=== PATIENT | female | born 1990 | race Caucasian/White ===

== ENCOUNTER 2025-07-31 20:36 | Emergency (ER) | payer OTHER, SELFPAY ==
--- OUTSIDE RECORDS SUMMARY | 2025-06-11 09:00 | XMS_ITS | Encounter Summary ---
Author Organization [facility] Address [address] [place] [address] Care Team Providers Care Band And Cuff Cutter Name Role Phone Lisbeth Sanchez APRN, CNP Primary Care Provid er Reason for Referral * Procedure/Equipment (Routine) - Incomplete Specialty Diagnoses / Procedures Referred By Contac t Referred To Contact Diagnoses Cervicalgia Procedures XR Cervical Spine 2 Views Bessy Delacruz PA-C [address] [place] [address] Phone: tel: fax: Referral ID Status Reason Start Date Expiration Date V isits Requested Visits Authorized [id number] Incomplete 06/11/2025 09/10/2026 1 1 * Consult/Transfer Care (Routine) - New Request Specialty Diagnoses / Procedures Referred By Benigno metzger Referred To Contact Diagnoses Atopic dermatitis, unspecified type Bessy Delacruz PA-C [address] [place] [address] Phone: tel: fax: Referral ID Status Reason Start Date Expiration Date V isits Requested Visits Authorized [id number] New Request 06/11/2025 09/10/2026 1 1 Scheduling Instructions Your clinician has recommended an appointment with Stephanie Porter. You can quickly schedule your appointment by signing in to your online account at [email or web address] or through the text message you may have received. You can also make an appointment by calling [phone]. We also suggest you call your health insurance provider about your benefits and coverage for this appointment. Question Answer Appointment Urgency? Non-Urgent Reason for Visit All other derm conditions - possible eczema, pruritic, dry, red rash feet, hands eye Reason for Visit * Reason Comments Follow-up Foot ongoing right N jose roberto pain Encounter Details Date Type Department Care Team (Late st Contact Info) Description 06/11/2025 10:00 AM CDT Office Visit [facility] [address] [facility] [place], [place] [phone] Bessy Delacruz PA-C [address] [place], [place] [phone] Chronic hypertension (HRC) (Primary Dx); Encounter for long-term current use of medication; Atopic dermatitis, unspecified type; Generalized pruritus; Cervicalgia Social History Tobacco Use Types Packs/Day Years Used Date Smoking Tobacco: Never Smokeless Tobacco: Never Alcohol Use Standard Drinks/Week Comments Yes 0 (1 standard drink = 0.6 oz pur e alcohol) social PHQ-2 Answer Date Recorded PHQ-2 Score 0 06/11/2025 Depression Answer Date Recor ded Last EPDS Total Score 0 10/08/2024 Last EPDS Self Harm Result Not on file 10/08 Comments No Sex and Gender Information Value Date Recorded Sex Assigned at Not on file Legal Sex Female 4:50 AM CDT Gender Identity Not on file Sexual Orientation Not on file 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 file Not on file Not on file documented as of this encounter Last Filed Vital Signs Vital Sign Reading Time Taken Comments Blood Pressure 140/99 06/11/2025 9:48 AM CDT Pulse 90 06/11/2025 9:48 AM CDT Temperature - - Respiratory Rate - - Oxygen Saturation - - Inhaled Oxygen Concentration - - Weight 112.4 kg (247 lb 11.2 oz) 06/11/2025 9:37 AM CDT Height 177 cm (5' 9.69) 06/11/2025 9:37 AM CDT Body Mass Index 35.86 06/11/2025 9:37 AM CDT documented in this encounter Patient Instructions * Patient Instructions* Bessy Delacruz PA-C - 06/11/2025 10:00 AM CDT Your clinician has recommended an appointment with [facility]. You can quickly schedule your appointment by signing in to your online account at [email or web address] or through the text message you may have received. You can also make an appointment by calling [phone]. We also suggest you call your health insurance provider about your benefits and coverage for this appointment. documented in this encounter Progress Notes * Bessy Delacruz PA-C - 06/11/2025 10:00 AM CDT Images from the original note were not included. Clinic Progress Note DATE OF VISIT: 06/11/2025 SUBJECTIVE: Chief Complaint Patient presents with Follow-up Foot ongoing right Neck pain History of Present Illness Emily Pittman is a 34 year old female with hypertension and PVCs who presents with concerns about blood pressure management and neck pain. Hypertension - Elevated blood pressure during stress tests, with a peak of 210/120 mmHg - Home blood pressure readings typically 120-130/90 mmHg - Current antihypertensive regimen includes metoprolol 100 mg, hydrochlorothiazide 25 mg, and spironolactone 100 mg - Family history of hypertension in both parents, both on medication - Anxiety during stress test - Previously on losartan, stopped due to BP control - Hx of persistent mild erythrocytosis - No snoring or gasping for air during sleep - Restlessness at night - No reported snoring or gasping by - Generally feels well-rested Premature ventricular contractions (pvcs) - History of bothersome PVCs, currently less severe - Metoprolol taken primarily for PVCs, also aids in blood pressure control Cervicalgia - Neck pain for a couple of months, described as 'pinchy sharp' on the light side - Pain radiates to the back of the neck and causes headaches - Pain is positional, worsens with certain movements, especially tilting head back - No arm weakness or tingling - Pain more pronounced in the morning and worsens throughout the day, especially with prolonged computer use Pruritic foot rash - Foot rash present for 1-2 years, characterized by itchiness and small bumps - Rash primarily on the back and bottom of the foot - Rash migrates to different areas and recently associated with itching on the hands - No improvement with ketoconazole cream or desonide low dose cream (prescribed for eye eczema) w/ continuous use - Family history of psoriatic eczema in father - Generalized itching on chest and neck without associated rash - Attributed to dry weather - 10/2024 TSH WNL She reports resolution of SOB, feeling of deconditioning and chest wall pain at bra line following her wedding, sx have not presented again. Patient Active Problem List Diagnosis Date Noted Ventricular premature depolarization 10/08/2024 PMS (premenstrual syndrome) 04/07/2022 Chronic hypertension (HRC) 05/31/2017 Past Medical History[1] Past Surgical History[2] Family History[3] Social history reviewed and updated in [facility]. Current Medications Table[4] Allergies Allergen Reactions Benzoyl Peroxide Hives and Edema,generalized Swelling, rash, hives. Review of Systems The remainder of complete review of systems is negative except as noted above. OBJECTIVE: BP (!) 140/99 (BP Location: Left Arm, BP Cuff Size: Regular) Pulse 90 Ht 5' 9.69 (1.77 m) Wt247 lb 11.2 oz (112.4 kg) LMP 05/21/2025 (Approximate) BMI 35.86 kg/m?? General: 34 y.o. female in no distress. Neck: No visible mass or goiter. Pain w/ palpation along L trapezius and notable tightness. L-sidedpain reported with leaning head back to L, all other movements w/o sx. Chest: Normal respiratory effort. Lungs are clear with good breath sounds bilaterally. Heart: Regular rate and rhythm. No murmur or gallop. Extremities: No edema. Skin: See skin findings as below. Assessment: Emily was seen today for follow-up. Diagnoses and all orders for this visit: Chronic hypertension (HRC) Chronic. Uncontrolled. Hypertension with episodes of elevated blood pressure, particularly during stress testing, [id number]/120 mmHg. Home readings average 120-130/90 mmHg. Premature ventricular contractions better controlled. No ischemia or stress on the heart during stress test. Ejection fraction is 51%. Family history of hypertension. Anxiety may contribute to elevated readings in clinical settings. - Discontinue hydrochlorothiazide. - Initiate losartan 50 mg with hydrochlorothiazide 12.5 mg combination therapy to minimize pill burden per pt preference. - Monitor blood pressure at home, especially in non-stressful settings. - Hold off on cardiology referral for now, but consider if blood pressure remains elevated or symptoms persist. - Check BMP in 2-4 weeks after starting losartan. - Submit an e-visit in 2-4 weeks with blood pressure readings. - Consider sleep study if symptoms suggestive of sleep apnea develop. - losartan-hydrochlorothiazide (HYZAAR) 50-12.5 MG tablet; Take 1 Tablet by mouth daily. - E-Visit (Clinician Initiated); Future - BMP; Future Encounter for long-term current use of medication - BMP; Future Atopic dermatitis, unspecified type Chronic. Uncontrolled. Chronic eczematous dermatitis on foot and hand with pruritus for 1-2 years. Previous treatments with ketoconazole and desonide cream were ineffective. Family history of eczema. Symptoms include itching and small bumps, with occasional spread to hands. Differential diagnosis includes eczema versus fungal infection, but fungal treatment was ineffective. - Prescribe higher potency steroid ointment for affected areas, to be used twice daily for 2 weeks. - Refer to dermatology for further evaluation and potential biopsy if symptoms persist. - Consider scheduling a dermatology appointment due to potential wait times. - Dermatology Consult-Adult/Peds - betamethasone dipropionate (DIPROSONE) 0.05 % ointment; Apple to affected area twice daily for upto 2 weeks. Generalized pruritus Acute. Controlled. - Liver Panel (Hepatic Function Panel); Future Cervicalgia Chronic. Uncontrolled. Chronic cervicalgia for several months, with sharp, pinching pain on the right side of the neck, sometimes radiating to the back of the neck and head. Pain is positional and worsens with certain movements. No associated arm weakness or tingling. Likely muscular in origin, with tightness noted on examination. - Order cervical spine x-ray to rule out bony abnormalities, x-ray w/ mild degenerative changes - Prescribe Flexeril 5 mg, with option to increase to 10 mg if tolerated, to be taken up to three times daily as needed. - Advise on neck stretches and self-directed physical therapy exercises. - Monitor for any progression of symptoms, such as shooting pain or weakness, which may warrant further imaging like MRI. - cyclobenzaprine (FLEXERIL) 5 MG tablet; Take 1-2 Tablets (5-10 mg) by mouth three times a day as needed for Muscle Spasms. - XR Cervical Spine 2 Views; Future Follow up if not improving or any concerns. Bessy Delacruz PA-C [1] Past Medical History: Diagnosis Date BP (high blood pressure) (HRC) Female infertility of unspecified origin Hypertension (HRC) Obesity (ACG) Thyroid disorder (HRC) Varicella [2] Past Surgical History: Procedure Laterality Date CHOLECYSTECTOMY HX APPENDECTOMY WISDOM TEETH EXTRACTION [3] Family History Problem Relation Name Age of Onset Hypertension Mother Mom High Cholesterol Mother Mom Blindness Father Dad legally blind in one eye Hypertension Father Dad High Cholesterol Father Dad Heart Disease Maternal Grandmother Marilin High Cholesterol Maternal Grandmother Marilin Hypertension Maternal Grandmother Marilin Heart Disease Maternal Grandfather Ray Diabetes Maternal Grandfather Ray Hypertension Maternal Grandfather Ray Heart Disease Paternal Grandfather Grandpa Don High Cholesterol Paternal Grandfather Grandpa Don Cancer, Breast Negative Family History Cancer, Ovary Negative Family History [4] Current Outpatient Medications Medication Sig Dispense Refill betamethasone dipropionate (DIPROSONE) 0.05 % ointment Apple to affected area twice daily for up to2 weeks. 15 g 2 cyclobenzaprine (FLEXERIL) 5 MG tablet Take 1-2 Tablets (5-10 mg) by mouth three times a day as needed for Muscle Spasms. 30 Tablet 0 desogestrel-ethinyl estradiol (APRI) 0.15-30 MG-MCG tablet Take 1 active tablet daily continuous for 3 months then stop taking active tablets for 7 days 112 Tablet 3 glycopyrrolate (ROBINUL) 1 MG tablet Take 1 tab by mouth once daily as needed. Indications: Excessive Sweating Disorder 30 Tablet 0 losartan-hydrochlorothiazide (HYZAAR) 50-12.5 MG tablet Take 1 Tablet by mouth daily. 30 Tablet 2 metoprolol succinate (TOPROL XL) 100 MG 24 hour release tablet Take 1 Tablet (100 mg) by mouth daily. 90 Tablet 3 spironolactone (ALDACTONE) 100 MG tablet Take 1 Tablet (100 mg) by mouth daily. 90 Tablet 3 SUMAtriptan (IMITREX) 50 MG tablet Take 1 Tablet (50 mg) by mouth as needed for Migraine. May repeat one tablet after 2 hours if needed. Maximum 4 tabs/24 hours and 9 days/month 9 Tablet 3 valACYclovir (VALTREX) 1 g tablet Take 1 tablet twice daily for 1 day at onset of symptoms. 30 Tablet 3 No current facility-administered medications for this visit. D TUBER MACHINE OPERATOR documented in this encounter Plan of Treatment Upcoming Encounters Date Type Department Care Team (Late st Contact Info) Description 08/23/2025 8:30 AM TREAD TUBER MACHINE OPERATOR Appointment [place] [address] [place] [address] Selina Rosales MD [address] [place] [address] 10/27/2025 1:00 PM TREAD TUBER MACHINE OPERATOR Appointment [facility] [address] [place] [address] 03/04/2026 11:10 AM CDT [facility] [place] [address] [place] [phone] [facility] [id number] [place] [address] Scheduled Referrals Name Type Priority Associated Diagnoses Orde r Schedule Dermatology Consult-Adult/Peds Referral Routine Atopic dermatitis, unspecified type Ordered: 06/11/2025 documented as of this encounter Results * Liver Panel (Hepatic Function Panel) (07/03/2025 8:06 AM CDT) Alkaline Phosphatase 45 40 - 150 U/L 07/03/2025 9:17 AM CDT [facility] Bilirubin, Total 0.4 0.2 - 1.2 mg/dL 07/03/2025 9:17 AM [facility] Bilirubin, Direct 0.1 0.0 - 0.5 mg/dL 07/03/2025 9:17 AM [facility] AST (SGOT) 18 16 - 46 U/L 07/03/2025 9:17 AM [facility] ALT (SGPT) 12 0 - 55 U/L 07/03/2025 9:17 AM [facility] Protein, Total 7.5 6.4 - 8.3 g/dL 07/03/2025 9:17 AM [facility] Albumin 4.0 3.5 - 5.0 g/dL 07/03/2025 9:17 AM [facility] Blood Venipuncture / Unknown 07/03/2025 8:06 AM CDT 07/03/2025 8:42 AM CDT us Bessy Delacruz PA-C LAB_1 Final Result [facility] CLIA: [id number] [address] [place] [address] * BMP (07/03/2025 8:06 AM CDT) Sodium 136 136 - 145 mmol/L 07/03/2025 9:17 AM [facility] Potassium 3.9 3.5 - 5.1 mmol/L 07/03/2025 9:17 AM [facility] Chloride 102 98 - 109 mmol/L 07/03/2025 9:17 AM [facility] CO2 23 20 - 29 mmol/L 07/03/2025 9:17 AM [facility] Anion Gap 11 6 - 16 mmol/L 07/03/2025 9:17 AM [facility] Calcium 10.0 8.4 - 10.4 mg/dL 07/03/2025 9:17 AM [facility] BUN 16 7 - 26 mg/dL 07/03/2025 9:17 AM [facility] Creatinine 0.89 0.55 - 1.02 mg/dL 07/03/2025 9:17 AM [facility] Glucose 95 70 - 100 mg/dL 07/03/2025 9:17 AM CDT [facility] Comment:The given reference range is for the fasting state. Non-fasting reference range for glucose is 70 - 180 mg/dL. GFR, Estimated >60 >60 mL/min/1.7 3m2 07/03/2025 9:17 AM CDT [facility] Hours Fasting 0.1 8 - 12 Hours 07/03/2025 9:17 AM CDT [facility] Comment:Lab unable to obtain patient's fasting status at time of specimen collection. Blood Venipuncture / Unknown 07/03/2025 8:06 AM CDT 07/03/2025 8:42 AM CDT us Bessy Delacruz PA-C LAB_1 Final Result [facility] CLIA: [id number] [address] [place] [address] * XR Cervical Spine 2 Views (06/11/2025 10:49 AM CDT) Anatomical Region Laterality Modality Spine, C-Spine, Neck Digital Rad iography Narrative 06/11/2025 11:01 AM CDT EXAM: XR CERVICAL SPINE 2 VIEWS INDICATION: L-sided neck pain, chronic, worsening, feels like pinching COMPARISON: None. FINDINGS: Two images obtained. Vertebral body heights appear well preserved. Mild degenerative disc and endplate changes C4-5 and C5-6. AP alignment is well preserved. Mild multilevel facet arthropathy. Prevertebral soft tissues are unremarkable. Signed by: Randall Mello 06/11/2025 11:01 AM Procedure Note Randall Mello, DO - 06/11/2025 EXAM: XR CERVICAL SPINE 2 VIEWS INDICATION: L-sided neck pain, chronic, worsening, feels like pinching COMPARISON: None. FINDINGS: Two images obtained. Vertebral body heights appear well preserved. Milddegenerative disc and endplate changes C4-5 and C5-6. AP alignment iswell preserved. Mild multilevel facet arthropathy. Prevertebral softtissues are unremarkable. Signed by: Randall Mello 06/11/2025 11:01 AM Bessy Delacruz PA-C RAD GD Final Result documented in this encounter Visit Diagnoses Diagnosis Chronic hypertension (HRC)- Primary Encounter for long-term current use of medication Atopic dermatitis, unspecified type Generalized pruritus Unspecified pruritic disorder Cervicalgia Neck pain on left side Cervicalgia documented in this encounter Care Teams Band And Cuff Cutter Relationship Specialty Start Date End Date Lisbeth Sanchez, TRACK ANNOUNCER, MUSIC EDUCATION ADJUNCT PROFESSOR [address] [place] [address] PCP - General Nurse Practitioner 01/23/23 documented as of this encounter
--- OUTSIDE RECORDS SUMMARY | 2025-06-26 23:00 | XMS_ITS | Encounter Summary ---
Author Organization [facility] Address [address] [place] [address] Care Team Providers Care Aesthetics Instructor Name Role Phone Lisbeth Sanchez Stephanie BROWN, FRONT OF HOUSE MANAGER Primary Care Provid er Reason for Visit * Reason Comments HYPERTENSION Entered automaticall y based on patient selection in [employer]. Encounter Details Date Type Department Care Team (Late st Contact Info) Description 06/27/2025 E-Visit [facility] Medicine [address] [place], [place] [phone] Besys Delacruz PA-C [address] [place], [place] [phone] Chief Comp: HYPERTENSION Social History Tobacco Use Types Packs/Day Years [...] Sign Reading Time Taken Comments Blood Pressure 119/88 07/10/2025 9:00 AM INTERNSHIP COORDINATOR Pulse - - Temperature - - Respiratory Rate - - Oxygen Saturation - - Inhaled Oxygen Concentration - - Weight - - Height - - Body Mass Index - - documented in this encounter Nursing Notes * Joanna John F - 07/10/2025 1:21 PM CST Documented BP, routing to provider to advise RNSHIP COORDINATOR documented in this encounter Plan of Treatment Upcoming Encounters Date Type Department Care Team (Late st Contact Info) Description 08/23/2025 8:30 AM INTERNSHIP COORDINATOR Appointment [place] [address] [place] [address] Selina Rosales MD [address] [place] [address] 10/27/2025 1:00 PM INTERNSHIP COORDINATOR Appointment [facility] [address] [place] [address] 03/04/2026 11:10 AM CDT Appointment [facility] [place] [address] [place] [phone] [facility] [address] [place], [place] [phone] documented as of this encounter Visit Diagnoses Not on filedocumented in this encounter Care Teams Aesthetics Instructor Relationship Specialty Start Date End Date Lisbeth Sanchez, ROUSTABOUT CREW, FRONT OF HOUSE MANAGER [address] [place] [address] PCP - General Nurse Practitioner 01/23/23 documented as of this encounter
--- OUTSIDE RECORDS SUMMARY | 2025-07-03 07:10 | XMS_ITS | Encounter Summary ---
Author Organization [facility] Address [address] [place] [address] Care Team Providers Care Hoist Worker Name Role Phone Laura Lisbeth Stephanie BROWN CNP Primary Care Provid er Encounter Details Date Type Department Care Team (Late Contact Info) Description 07/03/2025 8:10 AM CDT Lab Visit [facility] [address] [place] [address] Chronic hypertension (HRC); Encounter for long-term current use of medication; Generalized pruritus Social History Tobacco Use Types Packs/Day Years [...] on file documented as of this encounter Plan of Treatment Upcoming Encounters Date Type Department Care Team (Late Contact Info) Description 08/23/2025 8:30 AM INSURANCE CLAIMS ASSISTANT Appointment [place] [address] Dermatology [facility] [place] [address] Selina Rosales MD [address] [place] [address] 10/27/2025 1:00 PM INSURANCE CLAIMS ASSISTANT Appointment [facility] [address] [place] [address] 03/04/2026 11:10 AM CDT [facility]ment [facility] [place] [address] [place] [address] [facility] [address] [place] [address] documented as of this encounter Procedures Procedure Name Priority Date/Time Associated Diagnosis Comments LIVER PANEL(HEPATIC FUNCTION PANEL) Routine 07/03/2025 8:06 AM CDT Generalized pruritus BASIC METABOLIC PANEL Routine 07/03/2025 8:06 AM CDT Chronic hypertension (HRC) Encounter for long-term current use of medication documented in this encounter Results * Liver Panel (Hepatic Function Panel) (07/03/2025 8:06 AM CDT) Alkaline Phosphatase 45 40 - 150 U/L 07/03/2025 9:17 AM T [facility] Bilirubin, Total 0.4 0.2 - 1.2 mg/dL 07/03/2025 9:17 AM [facility] Bilirubin, Direct 0.1 0.0 - 0.5 mg/dL 07/03/2025 9:17 AM T [facility] AST (SGOT) 18 16 - 46 U/L 07/03/2025 9:17 AM [facility] ALT (SGPT) 12 0 - 55 U/L 07/03/2025 9:17 AM [facility] Protein, Total 7.5 6.4 - 8.3 g/dL 07/03/2025 9:17 AM [facility] Albumin 4.0 3.5 - 5.0 g/dL 07/03/2025 9:17 AM [facility] Blood Venipuncture / Unknown 07/03/2025 8:06 AM CDT 07/03/2025 8:42 AM CDT us Bessy Delacruz PA-C LAB_1 Final Result [facility] CLIA: [id number] [address] [place] [address] * BMP (07/03/2025 8:06 AM CDT) Sodium 136 136 - 145 mmol/L 07/03/2025 9:17 AM [facility] Potassium 3.9 3.5 - 5.1 mmol/L 07/03/2025 9:17 AM [facility] Chloride 102 98 - 109 mmol/L 07/03/2025 9:17 AM [facility] CO2 23 20 - 29 mmol/L 07/03/2025 9:17 AM [facility] Anion Gap 11 6 - 16 mmol/L 07/03/2025 9:17 AM [facility] Calcium 10.0 8.4 - 10.4 mg/dL 07/03/2025 9:17 AM [facility] BUN 16 7 - 26 mg/dL 07/03/2025 9:17 AM [facility] Creatinine 0.89 0.55 - 1.02 mg/dL 07/03/2025 9:17 AM [facility] Glucose 95 70 - 100 mg/dL 07/03/2025 9:17 AM [facility] Comment:The given reference range is for the fasting state. Non-fasting reference range for glucose is 70 - 180 mg/dL. GFR, Estimated >60 >60 mL/min/1.7 3m2 07/03/2025 9:17 AM [facility] Hours Fasting 0.1 8 - 12 Hours 07/03/2025 9:17 AM [facility] Comment:Lab unable to obtain patient's fasting status at time of specimen collection. Blood Venipuncture / Unknown 07/03/2025 8:06 AM CDT 07/03/2025 8:42 AM CDT us Bessy Delacruz PA-C LAB_1 Final Result [facility] CLIA: [id number] [address] [place] [address] documented in this encounter Visit Diagnoses Diagnosis Chronic hypertension (HRC) Encounter for long-term current use of medication Generalized pruritus Unspecified pruritic disorder documented in this encounter Care Teams Hoist Worker Relationship Specialty Start Date End Date Lisbeth Sanchez, KEVIN, YEAST STACKER [address] [place] [address] PCP - General Nurse Practitioner 01/23/23 documented as of this encounter
--- OUTSIDE RECORDS SUMMARY | 2025-07-14 14:00 | XMS_ITS | Encounter Summary ---
Author Organization [facility] Address [address] [place] [address] Care Team Providers Care Mobile Developer Name Role Phone Lisbeth Sanchez APRN, CNP Primary Care Provid er Reason for Referral * Consult/Transfer Care (Routine) - New Request Specialty Diagnoses / Procedures Referred By Benigno metzger Referred To Contact Diagnoses Generalized pruritus of unknown etiology Atopic dermatitis, unspecified type Tinea pedis of both feet Bessy Delacruz PA-C [address] [place] [address] Phone: tel: fax: Referral ID Status Reason Start Date Expiration Date V isits Requested Visits Authorized [id number] New Request 07/14/2025 10/13/2026 1 1 Scheduling Instructions Your clinician has recommended an appointment with Stephanie Porter. You can quickly schedule your appointment by signing in to your online account at [email or web address] or through the text message you may have received. You can also make an appointment by calling [phone]. We also suggest you call your health insurance provider about your benefits and coverage for this appointment. Question Answer Appointment Urgency? Non-Urgent Reason for Visit All other derm conditions - generalized pruritis, pruritic rash of bilateral feet, chronic IC LICENSED PRACTICAL NURSE * (Routine) - New Request Specialty Diagnoses / Procedures Referred By Benigno metzger Referred To Contact Diagnoses Generalized pruritus of unknown etiology Atopic dermatitis, unspecified type Procedures E-Consult to Dermatology - (for non-urgent low complexity quick questions only) Bessy Delacruz PA-C [address] [place] [address] Phone: tel: fax: Referral ID Status Reason Start Date Expiration Date V isits Requested Visits Authorized [id number] New Request 07/14/2025 10/13/2026 1 1 IC LICENSED PRACTICAL NURSE Reason for Visit * Reason Comments QUESTIONS, GENERAL Entered automaticall y based on patient selection in [employer]. Encounter Details Date Type Department Care Team (Late Contact Info) Description 07/14/2025 2:00 PM CLINIC LICENSED PRACTICAL NURSE E-Visit [facility] [address] [facility] [place] [address] Bessy Delacruz PA-C [address] [place], [place] [phone] Dx: Generalized pruritus of unknown etiology (Primary Dx) Social History Tobacco Use Types Packs/Day Years [...] (Late Contact Info) Description 08/23/2025 8:30 AM CLINIC LICENSED PRACTICAL NURSE Appointment [place] [address] Dermatology [address] [place] [address] Selina Rosales MD [address] [place] [address] 10/27/2025 1:00 PM CLINIC LICENSED PRACTICAL NURSE Appointment [facility] [address] [place] [address] 03/04/2026 11:10 AM CDT Appointment [facility] [place] [address] [place] [phone] [facility] [address] [place], [place] [phone] Scheduled Referrals Name Type Priority Associated Diagnoses Orde r Schedule Dermatology Consult-Adult/Peds Referral Routine Generalized pruritus of unknown etiology Atopic dermatitis, unspecified type Tinea pedis of both feet Ordered: 07/14/2025 documented as of this encounter Results * (ABNORMAL) Ferritin (07/29/2025 9:19 AM CLINIC LICENSED PRACTICAL NURSE) Ferritin 380(H) 9 - 204 ng/mL 07/29/2025 2:21 PM CLINIC LICENSED PRACTICAL NURSE [facility] Blood Venipuncture / Unknown 07/29/2025 9:19 AM CLINIC LICENSED PRACTICAL NURSE 07/29/2025 9:19 AM CLINIC LICENSED PRACTICAL NURSE us Bessy Delacruz PA-C LAB_1 Final Result [facility] CLIA: [id number] [address] [place], [place] [address] documented in this encounter Visit Diagnoses Diagnosis Generalized pruritus of unknown etiology- Primary Atopic dermatitis, unspecified type Tinea pedis of both feet documented in this encounter Care Teams Mobile Developer Relationship Specialty Start Date End Date Lisbeth Sanchez, PICTURE BOOKER, PLASTIC WELDER [address] [facility] [address] PCP - General Nurse Practitioner 01/23/23 documented as of this encounter
--- OUTSIDE RECORDS SUMMARY | 2025-07-18 09:00 | XMS_ITS | Encounter Summary ---
Author Organization [employer] Address [address] [place] [address] Care Team Providers Care Field Administrator Name Role Phone Lisbeth Sanchez APRN, CNP Primary Care Provid er Reason for Visit * Reason Comments CONSULT * Consult/Transfer Care (Routine) - New Request Specialty Diagnoses / Procedures Referred By Benigno metzger Referred To Contact Cardiology Diagnoses Symptomatic PVCs LUIS (dyspnea on exertion) Bessy Delacruz PA-C [address] [place] [address] Phone: tel: fax: Referral ID Status Reason Start Date Expiration Date V isits Requested Visits Authorized [id number] New Request 02/19/2025 05/21/2026 1 1 Encounter Details Date Type Department Care Team (Late st Contact Info) Description 07/18/2025 9:00 AM AGRICULTURAL CROP FARM MANAGER Office Visit Cardiology at [place] [address] [facility] [place] [address] Marquis Casillas DO [address] [place] [address] Ventricular premature depolarization (Primary Dx); Chronic hypertension (HRC) Social History Tobacco Use Types Packs/Day Years [...] Sign Reading Time Taken Comments Blood Pressure 118/93 07/18/2025 8:51 AM AGRICULTURAL CROP FARM MANAGER Pulse 103 07/18/2025 8:51 AM AGRICULTURAL CROP FARM MANAGER Temperature - - Respiratory Rate - - Oxygen Saturation - - Inhaled Oxygen Concentration - - Weight 114.5 kg (252 lb 6.4 oz) 07/18/2025 8:40 AM AGRICULTURAL CROP FARM MANAGER Height 175.3 cm (5' 9) 07/18/2025 8:40 AM AGRICULTURAL CROP FARM MANAGER Body Mass Index 37.27 07/18/2025 8:40 AM AGRICULTURAL CROP FARM MANAGER documented in this encounter Progress Notes * Marquis Casillas, DO - 07/18/2025 12:00 AM CST NAME: EMILY THOMAS CSN: [id number] CLINIC NOTE CARDIOLOGY CLINIC CONSULTATION DATE OF SERVICE: 07/18/2025 : 1990 REASON FOR VISIT: PVCs. HISTORY: Emily Thomas is a 35-year-old female with a history of hypertension. She is on 4 drugs for blood pressure including metoprolol, losartan/hydrochlorothiazide, and spironolactone. The patient's blood pressure has been elevated for the last few years. She does have a family history of hypertension with both of her parents being diagnosed with this at an early age. She has noted PVCs, which have been confirmed through a ZIO Patch monitor to link the symptoms. She wore the ZIO patch monitor inFebruary of 2023, showing an overall PVC burden of 2.5%. She did have some episodes of bigeminy andtrigeminy. She is symptomatic with PVCs. Her baseline electrocardiogram has been normal and there has been no QT prolongation. A stress echocardiogram obtained in April of this year showed no evidence for inducible ischemia with normal left ventricular systolic function. The patient's blood pressure was markedly elevated with exercise. She had been off her Toprol for the test. She had been previously on 100 mg of Toprol daily. She only achieved 80% of her maximum predicted heart rate. The patient has had PVCs that tend to be worse at night when she is lying in bed. She feels this kusum sense of skipped beats. She does not exercise regularly, but when she does do activities, these have not limited her. She does report that she passed out in her bathroom a year ago, the underlying reason was not identified. She did have warning symptoms. The patient does not snore per her account. She overall states her sleep is okay and she rarely naps. ALLERGIES: BENZOYL PEROXIDE. MEDICATIONS: 1. Micronor control pills. 2. Toprol-XL 100 mg daily. 3. Spironolactone 100 mg daily. 4. Losartan/hydrochlorothiazide 50/12.5 mg daily. 5. [place]-3 fatty acids. FAMILY HISTORY: Both of her parents with hypertension and high cholesterol. SOCIAL HISTORY: The patient does not smoke. She does not consume alcohol. PHYSICAL EXAMINATION: VITAL SIGNS: Blood pressure is 118/93, heart rate is 95, weight is 252 pounds. GENERAL: This is an alert, adult female, in no acute distress. NECK: Veins are not distended. HEART: Regular with normal S1, S2. There is no S3 or S4. There is no murmur. LUNGS: Clear. EXTREMITIES: Reveal no edema. IMPRESSION: 1. Hypertension in a 35-year-old female, on 4 drugs. She has a family history of premature hypertension. Exacerbating factors are likely her control pills as well as her weight and sedentary lifestyle. 2. Premature ventricular contractions with associated symptoms. The patient has been treated with metoprolol at escalating doses, which have helped. At this point, she is not interested in pursuing ablation or antiarrhythmic therapy to suppress premature ventricular contractions. RECOMMENDATIONS: 1. I did encourage weight loss, regular physical activity. 2. Consider a sleep study. 3. We did discuss options for treatment of PVCs. She will contact us if symptoms worsen and she is interested in taking the next step. This may involve antiarrhythmic therapies or possibly consideration of ablation procedures. MARQUIS CASILLAS DO CLP/AQS /[id number] CULTURAL CROP FARM MANAGER documented in this encounter Plan of Treatment Upcoming Encounters Date Type Department Care Team (Late st Contact Info) Description 08/23/2025 8:30 AM AGRICULTURAL CROP FARM MANAGER Appointment [place] [address] [address] [place] [address] Selina Rosales MD [address] [place] [address] 10/27/2025 1:00 PM AGRICULTURAL CROP FARM MANAGER Appointment [facility] [address] [place] [address] 03/04/2026 11:10 AM CDT Appointment [facility] [address] [place] [phone] [facility] [address] [place], [place] [phone] documented as of this encounter Visit Diagnoses Diagnosis Ventricular premature depolarization- Primary Other premature beats Chronic hypertension (HRC) documented in this encounter Care Teams Field Administrator Relationship Specialty Start Date End Date Lisbeth Sanchez, KEVIN, JENNI [address] [place] [address] PCP - General Nurse Practitioner 01/23/23 documented as of this encounter
--- OUTSIDE RECORDS SUMMARY | 2025-07-29 09:20 | XMS_ITS | Encounter Summary ---
Author Organization [facility] Address [address] [place] [address] Care Team Providers Care Tile Installer Name Role Phone Lisbeth Sanchez Stephanie BROWN CNP Primary Care Provid er Encounter Details Date Type Department Care Team (Late Contact Info) Description 07/29/2025 9:20 AM PHILANTHROPY OFFICER Lab Visit [facility] [address] [place] [address] Generalized pruritus of unknown etiology; Elevated ferritin Social History Tobacco Use Types Packs/Day Years [...] (Late Contact Info) Description 08/23/2025 8:30 AM PHILANTHROPY OFFICER Appointment [place] [address] D[facility]atology [address] [place] [address] Selina Rosales MD [address] [place] [address] 10/27/2025 1:00 PM PHILANTHROPY OFFICER Appointment [facility] [address] [place] [address] 03/04/2026 11:10 AM CDT [facility]ointment [facility] [place] [address] [place] [phone] Estefani Cannon, [facility] [address] [place], [place] [phone] documented as of this encounter Procedures Procedure Name Priority Date/Time Associated Diagnosis Comments FERRITIN Routine 07/29/2025 9:19 AM PHILANTHROPY OFFICER Generalized pruritus of unknown etiology IRON PROFILE (IRON,TIBC,%SAT.(CA LC)) Routine 07/29/2025 9:19 AM PHILANTHROPY OFFICER Elevated ferritin documented in this encounter Results * Iron Profile (Iron,TIBC,%Sat.(Calc)) (07/29/2025 9:19 AM PHILANTHROPY OFFICER) Iron 93 50 - 170 mcg/dL 07/29/2025 3:45 PM PHILANTHROPY OFFICER [facility] Transferrin 287 180 - 382 mg/dL 07/29/2025 3:45 PM PHILANTHROPY OFFICER [facility] TIBC, Calculated 359 240 - 450 mcg/dL 07/29/2025 3:45 PM PHILANTHROPY OFFICER [facility] % Saturation, Calculated 26 10 - 50 % 07/29/2025 3:45 PM PHILANTHROPY OFFICER [facility] Blood Venipuncture / Unknown 07/29/2025 9:19 AM PHILANTHROPY OFFICER 07/29/2025 9:19 AM PHILANTHROPY OFFICER us Bessy Delacruz PA-C LAB_1 Final Result [facility] CLIA: [id number] [address] [place] [address], [facility] * (ABNORMAL) Ferritin (07/29/2025 9:19 AM PHILANTHROPY OFFICER) Ferritin 380(H) 9 - 204 ng/mL 07/29/2025 2:21 PM PHILANTHROPY OFFICER [facility] Blood Venipuncture / Unknown 07/29/2025 9:19 AM PHILANTHROPY OFFICER 07/29/2025 9:19 AM PHILANTHROPY OFFICER us Bessy Delacruz PA-C LAB_1 Final Result [facility] CLIA: [id number] [address] [employer] [address] documented in this encounter Visit Diagnoses Diagnosis Generalized pruritus of unknown etiology Elevated ferritin Other abnormal blood chemistry documented in this encounter Care Teams Tile Installer Relationship Specialty Start Date End Date Lisbeth Sanchez, PIPELINES MANAGER, TELECOMMUNICATIONS FIELD TECHNICIAN [address] [place] [address] PCP - General Nurse Practitioner 01/23/23 documented as of this encounter
--- OUTSIDE RECORDS SUMMARY | 2025-07-29 10:50 | XMS_ITS | Encounter Summary ---
Author Organization [facility] Address [address] [place] [address] Care Team Providers Care Clinical Dental Technician Name Role Phone Lisbeth Sanchez APRN, CNP Primary Care Provid er Reason for Referral * Consult/Transfer Care (Routine) - Closed Specialty Diagnoses / Procedures Referred By Benigno metzger Referred To Contact Diagnoses Acute migraine [facility] [address] [address] Phone: tel: fax: Referral ID Status Reason Start Date Expiration Date Visits Re quested Visits Authorized [id number] Closed 07/29/2025 10/28/2026 1 1 Scheduling Instructions Your clinician has recommended an appointment with Sleep Health Services. Within this referral they may select to recommend you for: A. Consultation/Office Visit with a Sleep Medicine Specialist B. Consultation/Office Visit with an Insomnia Specialist C. Sleep Testing -In-Center Overnight Sleep Study D. Portable/Home Sleep test (Not all individuals will qualify for this type of study) Please Note: If sleep testing is recommended, it is not an automatic sleep study order and must first be reviewed by a sleep specialist to determine the next steps. The review process looks at multiple factors including your insurance requirements, personal health history, and [place] [employer] guidelines. This sleep services referral will be reviewed within two (2) business days and sent to the appropriate department for scheduling of the recommended appointment. If you do not hear from us within the next two (2) weeks, please contact us to help with triaging of your order: [facility]- [phone] Question Answer Appointment Urgency Non-Urgent Sleep Service Requested Sleep Test Other Pertinent History Family Hx of AC, Poorly Controlled Hypertension Signs/Symptoms of AC Morning Headaches Comments Please evaluate for sleep test Comments: Age/Sex: 35 y.o. / female Height: 07/18/25 : 5' 9 (1.753 m) Weight: 07/18/25 : 252 lb 6.4 oz (114.5 kg) Thanks, Nanette Alexander BMI: Estimated body mass index is 37.27 kg/m as calculated from the following: Height as of 07/18/25: 5' 9 (1.753 m). Weight as of 07/18/25: 252 lb 6.4 oz (114.5 kg). LETTER CARRIER Reason for Visit * Reason Comments Dental Hygiene No cc Encounter Details Date Type Department Care Team (Late st Contact Info) Description 07/29/2025 10:50 AM USPS LETTER CARRIER Office Visit [facility] [place] [address] [place] [phone] Estefani Cannon [facility] [address] [place] [address] Dental Hygiene (No cc/) Social History Tobacco Use Types Packs/Day Years [...] on file documented as of this encounter Patient Instructions * Patient Instructions* Estefani Cannon RD - 07/29/2025 10:50 AM USPS LETTER CARRIER Your next hygiene recall is due 01/25/2026 CARIES (TOOTH DECAY) PERIODONTAL (GUM) DISEASE ORAL CANCER low MOD high extrm LOW mod high LOW elevated ^ ^ ^ Risk Level MODERATE Risk Factors New or active superficial tooth decay (caries). How to Reduce Your Risk Hygiene recall at 6 to 12 months. Astor with fluoride toothpaste twice daily or as recommended. Application of a concentrated fluoride product to the teeth in the clinic to assist in remineralization. Risk Level LOW Risk Factors Missing scheduled dental appointments. Intermediate levels of plaque present. How To Maintain Your Low Risk Return visit with the dental hygienist at 6 month intervals to assess periodontal condition and provide necessary treatment. Oral hygiene instruction by the dentist, dental hygienist, or dental human resources assistant manager. Congratulations on your low risk for gum disease. Making healthy life style choices including brushing twice a day; daily flossing; and not using tobacco should help you maintain this low risk. Risk Level LOW How To Maintain Your Low Risk Congratulations on your low risk for oral cancer. Making healthy life style choices such as not using tobacco and low to moderate alcohol use should help you maintain this low risk. LETTER CARRIER documented in this encounter Progress Notes * Estefani Cannon RDH - 07/29/2025 10:50 AM CST HYGIENE PROPHY NOTE PROCEDURAL PAUSE: Patient identity verified: Yes Treatment plan/site verified with the patient: Yes Instruments/equipment verified: Yes Any medication/allergy contraindications: No PRESENTATION: Periodontal Status: Healthy Prognosis with treatment and patient compliance (per exam dentist): Present dentition is Favorable Plaque: Light; Supra-gingival (Generalized) Calculus: Moderate; Supra-gingival, Interproximal, and Mandibular anterior (Maxillary right, Maxillary left, Mandibular anterior) Stain: Absent Bleeding: Absent Gingival tissue: Normal (Generalized) ACTIVITIES/EDUCATION: Hand scale, Essential selective polishing, Flossed all contacts, and OHI NEXT PLANNED HYGIENE VISIT: Hygiene Prophy with exam Estefani Cannon RDH 07/29/2025, 11:38 AM CC: Javi LETTER CARRIER * Nanette Alexander DDS - 07/29/2025 10:50 AM CST RECALL EXAM NOTE REASON FOR VISIT/CHIEF COMPLAINT: Emily is a 35 y.o. female who presents for Dental Hygiene (No cc/) CHART REVIEW: Reviewed with patient: Medical history, Dental history, Problem list, Periodontal charting, and Radiographs. SOFT TISSUE, HEAD AND NECK EXAMINATION: Lips: normal Tongue: normal Palate: normal Throat: normal Floor of the mouth: normal Mucosa: normal Head and neck: both mast and temp muscles tight TMD EVALUATION: Palpation Pain: None Joint Sounds: None Pain with Range of Motion: None OCCLUSAL EXAMINATION: Unchanged COSMETIC CONCERNS: Patient's Perception: Acceptable Dentist's Perception: Acceptable TREATMENT REVIEW AND FOLLOW-UP: Discussed the Dental findings, Prognosis, and Treatment options with the patient. All questions answered and informed consent was obtained. Planned Recall Interval: Examination: 6 months Recall prophy: 6 months Discussed sleep study, clenching Discussed referral to sleep test for testing sleep apnea # 19 is asymptomatic opt to wait for the crown adv to do the hadoop application developer if sleep test is normal Next Planned Visit: referral for sleep study Nanette Alexander DDS 07/29/2025, 11:11 AM CC: Javi --End of Note-- LETTER CARRIER documented in this encounter Plan of Treatment Upcoming Encounters Date Type Department Care Team (Late st Contact [facility]) Description 08/23/2025 8:30 AM USPS LETTER CARRIER Appointment [place] [address] [place] [address] [place] [address] [place] [address] 10/27/2025 1:00 PM USPS LETTER CARRIER Appointment [facility] [address] [place] [address] 03/04/2026 11:10 AM CDT Appointment [facility] [address] [phone] Estefani Cannon, [facility] [address] [place] [address] Scheduled Orders Name Type Priority Associated Diagnoses Order Schedule PROPHYLAXIS-ADULT RECALL Dental Procedures Routine 1 Occurrences starting 07/29/2025 PERIODIC ORAL EVALUATION Dental Procedures Routine 1 Occurrences starting 07/29/2025 [id number] Dental Procedures Routine 1 Occurrences starting 07/29/2025 TOPICAL FLUORIDE VARNISH Dental Procedures Routine 1 Occurrences starting 07/29/2025 Scheduled Referrals Name Type Priority Associated Diagnoses Orde r Schedule Sleep Services-Adults Referral Routine Acute migraine Ordered: 07/29/2025 documented as of this encounter Procedures Procedure Name Priority Date/Time Associated Diagnosis Comments PERIODIC ORAL EVALUATION Routine 07/29/2025 10:50 AM USPS LETTER CARRIER Localized gingival recession PROPHYLAXIS-ADULT RECALL Routine 07/29/2025 10:50 AM USPS LETTER CARRIER Localized gingival recession documented in this encounter Visit Diagnoses Diagnosis Incomplete fracture of tooth- Primary Acute migraine Localized gingival recession Gingival recession, localized documented in this encounter Care Teams Clinical Dental Technician Relationship Specialty Start Date End Date Lisbeth Sanchez, NETBACKUP ADMINISTRATOR, QUARTZ ORIENTATOR [address] [facility] [place] [address] PCP - General Nurse Practitioner 01/23/23 documented as of this encounter
--- OUTSIDE RECORDS SUMMARY | 2025-07-31 20:38 | XMS_ITS | Encounter Summary ---
Author Organization [facility] Address [address] [place] [address] Care Team Providers Care Rn Oncology Research Name Role Phone Lisbeth Sanchez Stephanie BROWN, JENNI Primary Care Provid er Encounter Details Date Type Department Care Team (Late st Contact Info) Description 04/25/2025 Results Follow-Up [facility] [address] [facility] [place] [address] Bessy Delacruz, PA-C [address] [place], [place] [phone] Social History Tobacco Use Types Packs/Day Years [...] st Contact Info) Description 08/23/2025 8:30 AM EMERGENCY DEPT TECH Appointment [place] [address] D[facility]ology [address] [place] [address] Selina Rosales MD [address] [place] [address] 10/27/2025 1:00 PM EMERGENCY DEPT TECH Appointment [facility] [address] [place] [address] 03/04/2026 11:10 AM CDT Appointment [facility] [place] [address] [place] [phone] [facility] [address] [place], [place] [phone] documented as of this encounter Visit Diagnoses Not on filedocumented in this encounter Care Teams Rn Oncology Research Relationship Specialty Start Date End Date Lisbeth Sanchez, OPERATOR SPECIALIST COMMUNICATIONS, TIME RECORDER [address] [place] [address] PCP - General Nurse Practitioner 01/23/23 documented as of this encounter
--- OUTSIDE RECORDS SUMMARY | 2025-07-31 20:38 | XMS_ITS | Encounter Summary ---
Author Organization [facility] Address [address] [place] [address] Care Team Providers Care Line And Frame Poler Name Role Phone Lisbeth Sanchez Stephanie BROWN, JENNI Primary Care Provid er Encounter Details Date Type Department Care Team (Late st Contact Info) Description 07/14/2025 Notes/Orders [facility] Medicine [address] [facility] [place], [place] [phone] Bessy Delacruz, PARoula [address] [place], [place] [phone] Encounter for contraceptive management, unspecified type Social History Tobacco Use Types Packs/Day Years [...] st Contact Info) Description 08/23/2025 8:30 AM HYDRO PLANT OPERATOR Appointment [facility] [address] [place] [address] Selina Rosales MD [address] [place] [address] 10/27/2025 1:00 PM HYDRO PLANT OPERATOR Appointment [facility] [address] [place] [address] 03/04/2026 11:10 AM CDT Appointment [facility] [address] [place] [phone] [facility] [address] [place], [place] [phone] documented as of this encounter Visit Diagnoses Diagnosis Encounter for contraceptive management, unspecified type documented in this encounter Care Teams Line And Frame Poler Relationship Specialty Start Date End Date Lisbeth Sanchez, KEVIN, PRINCIPAL LAW CLERK [address] [place] [address] PCP - General Nurse Practitioner 01/23/23 documented as of this encounter
--- OUTSIDE RECORDS SUMMARY | 2025-07-31 20:38 | XMS_ITS | Encounter Summary ---
Author Organization [facility] Address [address] [place] [address] Care Team Providers Care Sheep Herder Name Role Phone Lisbeth Sanchez APRN, CNP Primary Care Provid er Reason for Referral * Procedure/Equipment (Routine) - Authorized Specialty Diagnoses / Procedures Referred By Benigno metzger Referred To Contact Diagnoses AC (obstructive sleep apnea) [facility] [address] [address] Phone: tel: fax: Referral ID Status Reason Start Date Expiration Date V isits Requested Visits Authorized [id number] Authorized 07/30/2025 10/29/2026 1 1 Scheduling Instructions Your clinician has placed an order for you to have a home sleep test. You will be contacted within the next 7-10 business days to discuss scheduling your set-up appointment for this device. There may be a delay in the set-up of your home sleep test due to insurance coverage verification and prior authorization requirements. The location and contact information for the site where you will flower picker your device is as follows: [facility] [address] [address] (option 2) [email or web address] 1. You will be scheduled for a visit to the sleep center to flower picker via a curbside process. Please allow up to 15 minutes for the pick-up appointment. You will be expected to return the device to a drop box outside the clinic the following morning (before 9am). 2. Please notify us immediately at (option 2) if you are unable to keep your appointment. Failure to cancel or re -schedule your appointment may result in a cancellation fee. 3. Based upon the results of your home sleep test one of the following may occur. a. You may be referred back to your ordering provider for a result s visit to discuss the next steps. b. You may be referred for an in-center sleep study for a more thorough diagnostic test. c. You may be referred for an in-center sleep study to titrate Positive Airway Pressure (PAP) for treatment of obstructive sleep apnea (AC). Return for F/U after sleep testing Patient will have the option to receive their results via MyChart or phone. Preliminary results will be provided within 3 business days. Final interpretation will be completed by a sleep specialist and can be discussed at your follow up visit. Depending on results, you may be contacted by Home Medical for positive airway pressure treatment. If you have additional questions, please visit our website at [email or web address] and review the information there. Question Answer Appointment Urgency? Non-Urgent Type of Study? Diagnostic Study Is this a repeat home study? No Comments Estimated body mass index is 37.27 kg/m as calculated from the following: Height as of 07/18/25: 5' 9 (1.753 m). Weight as of 07/18/25: 252 lb 6.4 oz (114.5 kg). SLEEP SERVICES REFERRAL --> HST (sent for cosign) . 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 Appointment [facility] [address] [place] [address] Selina Rosales MD [address] [place] [address] 10/27/2025 1:00 PM SUPERVISOR [employer] Appointment [facility] [address] [place] [address] 03/04/2026 11:10 AM CDT [facility]ment [facility] [place] [address] [place] [phone] [facility] [id number] [place] [phone] Scheduled Referrals Name Type Priority Associated Diagnoses Orde r Schedule Sleep Study (Home)-Portable Setup Referral Routine AC (obstructive sleep apnea) Ordered: 07/30/2025 documented as of this encounter Visit Diagnoses Diagnosis AC (obstructive sleep apnea)- Primary Obstructive sleep apnea (adult) (pediatric) documented in this encounter Care Teams Sheep Herder Relationship Specialty Start Date End Date Lisbeth Sanchez, ROCK CRUSHING MACHINE OPERATOR, ARMORED TRUCK DRIVER [address] [place] [address] PCP - General Nurse Practitioner 01/23/23 documented as of this encounter
--- OUTSIDE RECORDS SUMMARY | 2025-07-31 20:38 | XMS_ITS | Encounter Summary ---
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 [employer] [address] [place] [phone] [facility] [address] [place] [address] Scheduled Orders Name Type Priority Associated Diagnoses Orde r Schedule Ferritin Lab Routine Elevated ferritin Expected: 08/12/2025, Expires: documented as of this encounter Results * Iron Profile (Iron,TIBC,%Sat.(Calc)) (07/29/2025 9:19 AM COMPUTER GAME TESTER) Iron 93 50 - 170 mcg/dL 07/29/2025 3:45 PM [facility] Transferrin 287 180 - 382 mg/dL 07/29/2025 3:45 PM [facility] TIBC, Calculated 359 240 - 450 mcg/dL 07/29/2025 3:45 PM [facility] % Saturation, Calculated 26 10 - 50 % 07/29/2025 3:45 PM [facility] Blood Venipuncture / Unknown 07/29/2025 9:19 AM COMPUTER GAME TESTER 07/29/2025 9:19 AM COMPUTER GAME TESTER us Bessy Delacruz PA-C LAB_1 Final Result [facility] CLIA: [id number] [address] [place] [address], [facility] documented in this encounter Visit Diagnoses Diagnosis Elevated ferritin- Primary Other abnormal blood chemistry documented in this encounter Care Teams Environmental Specialist Relationship Specialty Start Date End Date Holscher, Lisbeth L, GAS OPERATION MANAGER, PIPE ORGAN TECHNICIAN [address] [facility] [place] [address] PCP - General Nurse Practitioner 01/23/23 documented as of this encounter
--- OUTSIDE RECORDS SUMMARY | 2025-07-31 20:38 | XMS_ITS | Encounter Summary ---
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 [place] [address] [place] [address] Selina Rosales MD [address] [place] [address] 10/27/2025 1:00 PM FOOD COUNTER WORKER Appointment [facility] [address] [place] [address] 03/04/2026 11:10 AM CDT [facility]ointment [facility] [place] [address] [place] [phone] [facility] [address] [place], [place] [phone] documented as of this encounter Visit Diagnoses Not on filedocumented in this encounter Care Teams Patient Registration Rep Relationship Specialty Start Date End Date Lisbeth Sanchez, BENCH MOLDER APPRENTICE, [place] ATTORNEY [address] [place] [address] PCP - General Nurse Practitioner 01/23/23 documented as of this encounter
--- OUTSIDE RECORDS SUMMARY | 2025-07-31 20:38 | XMS_ITS | Encounter Summary ---
Author Organization [facility] Address [address] [place] [address] Care Team Providers Care Dairy Department Manager Name Role Phone Lisbeth Sanchez Stephanie BROWN, BUSINESS SUPPORT ADMINISTRATOR Primary Care Provid er Encounter Details Date Type Department Care Team (Late st Contact Info) Description 07/14/2025 E-Consult Contact [facility] [address] [place], [place] [phone] [place] [address] [place], [place] [phone] Rash and other nonspecific skin eruption (Primary Dx) Social History Tobacco Use Types [...] on file documented as of this encounter Progress Notes * Purnima Tamayo MD - 07/14/2025 2:52 PM CST Derm eConsult Note: I am providing a specialty opinion to the referring clinician for their use in developing a treatment plan regarding the specific question they submitted via the Derm eConsult order. Photos submitted: yes Derm eConsult Impression: Tinea pedis vs psoriasis Derm eConsult Recommendations: -please place new dermatology referral (routine) as it looks like the patient has not scheduled yet -I recommend application of 1% terbinafine cream BID x 30 days and avoidance of all topical steroids during that time - for pruritus of chest, consider checking ferritin, if below 40, then supplement with SlowFe once daily As the on-call Application Programmer Analyst answering this eConsult request, I consulted with the patient's clinician and provided general dermatology advice. Given the clinician has established the direct relationship with the patient, I acknowledge that the clinician has ultimate responsibility for treatment dec isions and to determine the patient's course of care. Thank you, Purnima Tamayo MD Total time for the econsult was 7 minutes including, but not limited to chart review and documentation. ER BRACE BLOCK MACHINE OPERATOR documented in this encounter Plan of Treatment Upcoming Encounters Date Type Department Care Team (Late st Contact Info) Description 08/23/2025 8:30 AM CORNER BRACE BLOCK MACHINE OPERATOR Appointment [place] [address] [place] [address] Selina Rosales MD [address] [place] [address] 10/27/2025 1:00 PM CORNER BRACE BLOCK MACHINE OPERATOR Appointment [facility] [address] [place] [address] 03/04/2026 11:10 AM CDT Appointment [facility] [address] [place] [address] Estefani Cannon [facility] [address] [place], [place] [phone] documented as of this encounter Visit Diagnoses Diagnosis Rash and other nonspecific skin eruption- Primary documented in this encounter Care Teams Dairy Department Manager Relationship Specialty Start Date End Date Lisbeth Sanchez, PSYCHIATRIC THERAPIST, BUSINESS SUPPORT ADMINISTRATOR [address] [facility] [place] [address] PCP - General Nurse Practitioner 01/23/23 documented as of this encounter
--- OUTSIDE RECORDS SUMMARY | 2025-07-31 20:38 | XMS_ITS | Clinical Summary ---
Author Organization [facility] Address [address] [place] [address] Care Team Providers Care Director Manufacturing Engineering Name Role Phone Lisbeth Sanchez APRN, CNP Primary Care Provid er Source Comments You are receiving this document as you are listed as the primary care provider,follow-up provider, or the patient has been referred to you for consultation.This is in compliance with the Medicare andMedicaid EHR Incentive Program,which states Providers who transition their patient to another setting of careor provider of care or refers their patient to another provider of care shouldprovide summary care record for each transition of care or referral. Granify Allergies Active Allergy Reactions Criticality Noted Date Comments Benzoyl Peroxide Hives,Edema,generalized High 2012 Swelling, rash, hives. Medications valACYclovir (VALTREX) 1 g tabletIndication s:Herpes labialis Take 1 tablet twice daily for 1 day at onset of symptoms. 30 Tablet 3 03/20/20 24 Active spironolactone (ALDACTONE) 100 MG tabletIndication s:Hair loss Take 1 Tablet (100 mg) by mouth daily. 90 Tablet 3 08/05/20 24 2024 Active metoprolol succinate (TOPROL XL) 100 MG 24 hour release tabletIndication s:Essential hypertension (HRC) Take 1 Tablet (100 mg) by mouth daily. 90 Tablet 3 10/04/19 25 2025 Active SUMAtriptan (IMITREX) 50 MG tablet Take 1 Tablet (50 mg) by mouth as needed for Migraine. May repeat one tablet after 2 hours if needed. Maximum 4 tabs/24 hours and 9 days/month 9 Tablet 3 10/14/19 25 Active glycopyrrolate (ROBINUL) 1 MG tabletIndication s:Hyperhidrosis Take 1 tab by mouth once daily as needed. Indications: Excessive Sweating Disorder 30 Tablet 04/23/20 25 Active losartan-hydroch lorothiazide (HYZAAR) 50-12.5 MG tabletIndication s:Chronic hypertension (HRC) Take 1 Tablet by mouth daily. 30 Tablet 2 06/11/20 25 2025 Active norethindrone, contraceptive, (MICRONOR) 0.35 MG tabletIndication s:Encounter for contraceptive management, unspecified type Take 1 Tablet (0.35 mg) by mouth daily. 90 Tablet 3 07/14/20 25 Active terbinafine (LAMISIL) 1 % creamIndications :Tinea pedis of both feet Apply to affected area twice daily 28.4 g 1 07/14/20 25 Active omega-3 fatty acids (FISH OIL) 1000 MG capsule Take 2 Capsules (2,000 mg) by mouth daily. Active desogestrel-ethi nyl estradiol (APRI) 0.15-30 MG-MCG tabletIndication s:PMS (premenstrual syndrome) Take 1 active tablet daily continuous for 3 months then stop taking active tablets for 7 days 112 Tablet 3 02/20/20 25 2024 Discontinued cyclobenzaprine (FLEXERIL) 5 MG tabletIndication s:Cervicalgia Take 1-2 Tablets (5-10 mg) by mouth three times a day as needed for Muscle Spasms. 30 Tablet 06/11/20 25 2024 Discontinued betamethasone dipropionate (DIPROSONE) 0.05 % ointmentIndicati ons:Atopic dermatitis, unspecified type Apple to affected area twice daily for up to 2 weeks. 15 g 2 06/11/20 25 2024 Discontinued(* Resolved Condition) hydrOXYzine HCl (ATARAX) 25 MG tabletIndication s:Generalized pruritus of unknown etiology Take 0.5-1 Tablets (12.5-25 mg) by mouth at bedtime as needed. 30 Tablet 2 07/14/20 25 2024 Discontinued(* Resolved Condition) Active Problems Patient Care Coordination No te Formatting of this note migh t be different from the original. 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 Other rosacea 06/11/2025 Encounters Date Type Department Care Team Description 07/30/2025 Notes/Orders [facility] [address] [phone] Estefani Cannon RDH 07/29/2025 10:50 AM TARGETING ACQUISITION OFFICER Office Visit [facility] [address] [phone] Estefani Cannon, RICHARD Dental Hygiene (No cc/) 07/29/2025 9:20 AM TARGETING ACQUISITION OFFICER Lab Visit [address] [phone] Generalized pruritus of unknown etiology; Elevated ferritin 07/29/2025 Results Follow-Up [facility] [address] [address] Bessy Delacruz PA-C 07/18/2025 9:00 AM TARGETING ACQUISITION OFFICER Office Visit [facility] [place] [address] [address] [facility] [address] Marquis Casillas DO Ventricular premature depolarization (Primary Dx); Chronic hypertension (HRC) 07/14/2025 2:00 PM TARGETING ACQUISITION OFFICER E-Visit [address] [place] [address] Bessy Delacruz PA-C Dx: Generalized pruritus of unknown etiology (Primary Dx) 07/14/2025 E-Consult [facility] [address] [place] [address] Naima Simpson MD Rash and other nonspecific skin eruption (Primary Dx) 07/14/2025 Notes/Orders [address] [place] [address] Bessy Delacruz PA-C Encounter for contraceptive management, unspecified type 07/03/2025 8:10 AM CDT Lab Visit [facility] [address] [place] [phone] Chronic hypertension (HRC); Encounter for long-term current use of medication; Generalized pruritus 06/27/2025 E-Visit [address] [place] [address] Bessy Delacruz PA-C Chief Comp: HYPERTENSION 06/11/2025 10:45 AM CDT Ancillary Procedure [facility] [address] [place] [address]. [place] [address] Bessy Delacruz PA-C Neck pain on left side 06/11/2025 10:00 AM CDT Office Visit [address] [place] [address] Bessy Delacruz PA-C Chronic hypertension (HRC) (Primary Dx); Encounter for long-term current use of medication; Atopic dermatitis, unspecified type; Generalized pruritus; Cervicalgia 06/11/[address] [place] [id number] Bessy eDlacruz PA-C Pharmacy 06/11/2025 Results Follow-Up [facility] [address] [facility] [place] [address] Bessy Delacruz PA-C from Last 3 Months Immunizations Immunization Administration Dates Next Due Flu Vac (3+ yrs) 07/05/2010,07/18/2008 Flu Vac Preserv Free (3+yrs) 06/26/2024,07/13/20 12 HepB Ped/Adol (0-18 yrs) 02/08/1999,08/17/1998,1 09/17/1997 Influenza (Flucelvax), Prese rv Free QIV 06/27/2023 Influenza (Fluzone 0.25, 6-35 mos) 05/20/2013 Influenza IIV4 (Quadrivalent ) 0.5mL (78420) 06/08/2022,06/01/2021,05/28/2020,2018,05/25/2018,06/05/2017,05/30/2016,0 05/21/2015,05/19/2014,05/20/2013 Influenza, Unspecified Formulation 05/21/2015 MMR 09/21/2000,10/02/1989 OPV, Trivalent (Orimune or tOPV) 994,10/02/1989,08/18/1989,1987 Pfizer Bivalent 12+ 06/08/2022 Pfizer COVID-19 12+ (Comirnaty) 06/27/2023 Pfizer Monovalent 12+ Purple Top 10/07/2020,09/04 TB Skin Test - Inpt (PPD) 12/07/2010,11/30/2010 TDAP (BOOSTRIX) 06/22/2015 Td 09/21/2000 Tdap 10/19/2017 Family History Medical History Relation Name Comments Blindness Father Dad legally blind i n one eye High Cholesterol Father Dad Hypertension Father Dad High Cholesterol Mother Mom Hypertension Mother Mom Diabetes Maternal Grandfather Ray Heart Disease Maternal Grandfather Ray Hypertension Maternal Grandfather Ray Heart Disease Maternal Grandmother Marliin High Cholesterol Maternal Grandmother Marilin Hypertension Maternal Grandmother Marilin Heart Disease Paternal Grandfather Grandpa Don High Cholesterol Paternal Grandfather Grandpa Don Cancer, Breast Negative Family History Cancer, Ovary Negative Family History Relation Name Status Comments Father Dad Alive Mother Mom Alive Brother Alive Maternal Grandfather Ray Maternal Grandmother Marilin Alive Paternal Grandfather Grandpa Don Paternal Grandmother Social History Tobacco Use Types Packs/Day Years Used Date Smoking Tobacco: Never Smokeless Tobacco: Never Tobacco Cessation:Counseling Given: Not Answered Alcohol Use Standard Drinks/Week Comments Yes 0 [...] file Not on file Not on file Last Filed Vital Signs Vital Sign Reading Time Taken Comments Blood Pressure 118/93 07/18/2025 8:51 AM TARGETING ACQUISITION OFFICER Pulse 103 07/18/2025 8:51 AM TARGETING ACQUISITION OFFICER Temperature 36.8 C (98.2 F) 08/26/2023 8:09 AM TARGETING ACQUISITION OFFICER Respiratory Rate 18 08/26/2023 8:09 AM TARGETING ACQUISITION OFFICER Oxygen Saturation 100% 08/26/2023 8:09 AM TARGETING ACQUISITION OFFICER Inhaled Oxygen Concentration - - Weight 114.5 kg (252 lb 6.4 oz) 07/18/2025 8:40 AM TARGETING ACQUISITION OFFICER Height 175.3 cm (5' 9) 07/18/2025 8:40 AM TARGETING ACQUISITION OFFICER Body Mass Index 37.27 07/18/2025 8:40 AM TARGETING ACQUISITION OFFICER Plan of Treatment Upcoming Encounters Date Type Department Care Team (Late st Contact Info) Description 08/23/2025 8:30 AM TARGETING ACQUISITION OFFICER Appointment [place] [address] [place] [address] Selina Rosales MD [address] [place] [address] 10/27/2025 1:00 PM TARGETING ACQUISITION OFFICER Appointment [facility] [address] [place] [address] 03/04/2026 11:10 AM CDT Appointment [facility] [place] [address] [place] [address] Estefani Cannon, [address] [place], [place] [phone] Health Maintenance Due Date Last Done Comments HPV Vaccine (1 - 3-dose SCDM series) 2015 Adult Preventive Visit 04/07/2024 04/07/2022, 2020 COVID-19 Vaccine (2024- season) 2025 06/27/2023, 06/08/2022, 10/07/2020, Additional history exists Cervical Cancer Screening 03/19/20262020, 03/19/2021, 02/15/2018, Additional history exists Diabetes Screening- (based on age and BMI) 10/08/2027 10/08/2024, 05/11/2023, 06/09/2021, Additional history exists DTaP/Tdap/Td Vaccine (4 - Tdap) 10/19/2027 10/19/2017, 06/22/2015, 09/21/2000 Zoster/Shingles Vaccine (1 of 2) 2038 IPV (Polio) Vaccine Completed 04/11/1994, 10/02/1989, 08/18/1989, Additional history exists HepB Vaccine Completed 02/08/1999, 08/04, 07/18/1998 HIV Screening (Preventive Services) Completed 05/31/2017, 02/02/2015 Hep C Screening (Preventive Services) Completed 12/03/2020 Influenza Vaccine Completed 07/06/2025, , 06/27/2023, Additional history exists HepA Vaccine Aged Out No longer eligi ble based on patient's age to complete this topic Hib Vaccine Aged Out No longer eligi ble based on patient's age to complete this topic MCV4 Vaccine Aged Out No longer eligi ble based on patient's age to complete this topic Meningococcal B Vaccine Aged Out No l onger eligible based on patient's age to complete this topic Pneumococcal Vaccine Aged Out No long er eligible based on patient's age to complete this topic Procedures Procedure Name Priority Date/Time Associated Diagnosis Comments PROPHYLAXIS-ADULT RECALL Routine 07/29/2025 10:50 AM TARGETING ACQUISITION OFFICER Localized gingival recession PERIODIC ORAL EVALUATION Routine 07/29/2025 10:50 AM TARGETING ACQUISITION OFFICER Localized gingival recession IRON PROFILE (IRON,TIBC,%SAT.(CA LC)) Routine 07/29/2025 9:19 AM TARGETING ACQUISITION OFFICER Elevated ferritin FERRITIN Routine 07/29/2025 9:19 AM TARGETING ACQUISITION OFFICER Generalized pruritus of unknown etiology LIVER PANEL(HEPATIC FUNCTION PANEL) Routine 07/03/2025 8:06 AM CDT Generalized pruritus BASIC METABOLIC PANEL Routine 07/03/2025 8:06 AM CDT Chronic hypertension (HRC) Encounter for long-term current use of medication XR CERVICAL SPINE 2 VIEWS Routine 06/11/2025 10:49 AM CDT Neck pain on left side HGB A1C Routine 10/08/2024 9:12 AM TARGETING ACQUISITION OFFICER Screening for diabetes mellitus (DM) CYTOLOGY (PAP) Routine 03/19/2021 11:35 AM CDT Screening for malignant neoplasm of cervix HEPATITIS C ANTIBODY, WITH REFLEX (ANTI-HCV) Routine 12/03/2020 12:16 PM CDT Myalgia Arthropathy HIV-1 P24 AND HIV-1/HIV-2 ANTIBODIES Routine 05/31/2017 5:20 PM CDT Screening examination for venereal disease from Last 3 Months or Most Recently Relevant to Health Maintenance Results * (ABNORMAL) Ferritin (07/29/2025 9:19 AM TARGETING ACQUISITION OFFICER) Ferritin 380(H) 9 - 204 ng/mL 07/29/2025 2:21 PM TARGETING ACQUISITION OFFICER [facility] Blood Venipuncture / Unknown 07/29/2025 9:19 AM TARGETING ACQUISITION OFFICER 07/29/2025 9:19 AM TARGETING ACQUISITION OFFICER Bessy Delacruz PA-C LAB_1 Final Result Performing Organization Address [facility] Co de Phone Number [facility] CLIA: [id number] [address] * Iron Profile (Iron,TIBC,%Sat.(Calc)) (07/29/2025 9:19 AM TARGETING ACQUISITION OFFICER) Pathologist [facility] Iron 93 50 - 170 mcg/dL 07/29/2025 3:45 PM TARGETING ACQUISITION OFFICER [facility] Transferrin 287 180 - 382 mg/dL 07/29/2025 3:45 PM [facility] TIBC, Calculated 359 240 - 450 mcg/dL 07/29/2025 3:45 PM [facility] % Saturation, Calculated 26 10 - 50 % 07/29/2025 3:45 PM [facility] Blood Venipuncture / Unknown 07/29/2025 9:19 AM TARGETING ACQUISITION OFFICER 07/29/2025 9:19 AM TARGETING ACQUISITION OFFICER Bessy Delacruz PA-C LAB_1 Final Result Performing Organization Address City/[facility] Co de Phone Number [facility] CLIA: [id number] [address] * Liver Panel (Hepatic Function Panel) (07/03/2025 8:06 AM CDT) Alkaline Phosphatase 45 40 - 150 U/L 07/03/2025 9:17 AM T [facility] Bilirubin, Total 0.4 0.2 - 1.2 mg/dL 07/03/2025 9:17 AM T [facility] Bilirubin, Direct 0.1 0.0 - 0.5 mg/dL 07/03/2025 9:17 AM T [facility] AST (SGOT) 18 16 - 46 U/L 07/03/2025 9:17 AM [facility] ALT (SGPT) 12 0 - 55 U/L 07/03/2025 9:17 AM [facility] Protein, Total 7.5 6.4 - 8.3 g/dL 07/03/2025 9:17 AM [facility] Albumin 4.0 3.5 - 5.0 g/dL 07/03/2025 9:17 AM [facility] Blood Venipuncture / Unknown 07/03/2025 8:06 AM CDT 07/03/2025 8:42 AM CDT Bessy Delacruz PA-C LAB_1 Final Result [facility] CLIA: [id number] [address] [place] [address] * BMP (07/03/2025 8:06 AM T) Sodium 136 136 - 145 mmol/L 07/03/2025 9:17 AM [facility] Potassium 3.9 3.5 - 5.1 mmol/L 07/03/2025 9:17 AM [facility] Chloride 102 98 - 109 mmol/L 07/03/2025 9:17 AM [facility] CO2 23 20 - 29 mmol/L 07/03/2025 9:17 AM [facility] Anion Gap 11 6 - 16 mmol/L 07/03/2025 9:17 AM [facility] Calcium 10.0 8.4 - 10.4 mg/dL 07/03/2025 9:17 AM [facility] BUN 16 7 - 26 mg/dL 07/03/2025 9:17 AM [facility] Creatinine 0.89 0.55 - 1.02 mg/dL 07/03/2025 9:17 AM [facility] Glucose 95 70 - 100 mg/dL 07/03/2025 9:17 AM [facility] Comment:The given reference range is for the fasting state. Non-fasting reference range for glucose is 70 - 180 mg/dL. GFR, Estimated >60 >60 mL/min/1.7 3m2 07/03/2025 9:17 AM [facility] Hours Fasting 0.1 8 - 12 Hours 07/03/2025 9:17 AM CDT [facility] Comment:Lab unable to obtain patient's fasting status at time of specimen collection. Blood Venipuncture / Unknown 07/03/2025 8:06 AM CDT 07/03/2025 8:42 AM CDT eBssy Delacruz PA-C LAB_1 Final Result [facility] CLIA: [id number] [address] [place] [address] * XR Cervical Spine 2 Views (06/11/2025 [...] Bessy Delacruz PA-C RAD GD Final Result * Hgb A1C (Expected: Now) - Collect in Lab (10/08/2024 9:12 AM TARGETING ACQUISITION OFFICER) Hemoglobin A1C (Rapid) 5.5 <=5.6 % 10/08/2024 12:20 PM [facility] Estimated Average Glucose (Calc) 111 < 117 mg/dL 10/08/2024 12:20 PM [facility] Comment:Estimated average gl ucose (eAG) converts A1c into glucose units (mg/dL) and estimates average glucose over the past approximately 3 months. The eAG reference interval (<117 mg/dL) corresponds to an A1c of <5.7%. Blood Venipuncture / Unknown 10/08/2024 9:12 AM TARGETING ACQUISITION OFFICER 10/08/2024 9:18 AM TARGETING ACQUISITION OFFICER Narrative [facility] - 10/08/2024 12:20 PM TARGETING ACQUISITION OFFICER The test method used for this Hemoglobin A1c result can experience interference from elevated hemoglobin and other hemoglobin variants. In patients with results that do not correlate clinically, contact the lab for further direction. us Kaylah Macias DO LAB_1 Final Result Performing Organization Address City/State/[facility] Co de Phone Number [facility] [address] [place] [address] * PAP Test (03/19/2021 11:35 AM CDT) Case Report Pap Case: [id number] Authorizing Provider: Cassidy Paez DO Collected: 03/19/2021 1135 Ordering Location: [facility] Received: 03/19/2021 1242 First Screen: Jyoti Martinez CT (ASCP) Specimen: Pap Test, Routine, Cervix/Endocervix 03/30/2021 12:41 PM CDT [facility] Pap Specimen Adequacy Satisfactory for evaluation, endocervical/armstrong sformation zone component absent. 03/30/2021 12:41 PM CDT [facility] Pap Interpretation Negative for intraepithelial lesion or malignancy (NILM). 03/30/2021 12:41 PM CDT [facility] at 1241 CDT Pap Disclaimer The Pap test is a screening test designed to aid in the detection of cervical cancer and its precursor lesions. It is not a diagnostic procedure and should not be used as the sole means of detecting cervical cancer. Both false-positive and false-negative results may occur. 03/30/2021 12:41 PM CDT [facility] Gross Description The specimen is received in SurePath fixative and properly labeled. 1 Pap-stained SurePath slide is prepared. 03/30/2021 12:41 PM CDT [facility] Embedded Images 12:41 PM CDT [facility] Other Specimen Type ENTIRE ENDOCERVIX / Unknown 03/19/2021 11:35 AM CDT 03/19/2021 12:42 PM CDT Comment:LMP: Patient's last menstrual period was 03/07/2021. us Cassidy Paez DO LAB PATHOLOGY Final Res ult Performing Organization Address City/[facility]/ZIP Co de Phone Number [facility] [address] [place] [address] * HCAB - Hepatitis C Virus Patrica with Reflex In-House (12/03/2020 12:16 PM CDT) Pathologist [facility] Hepatitis C Antibody Negative (Non Reactive) Negative (Non Reactive) 12/03/2020 4:12 PM CDT [facility] Comment:Antibodies to HCV no t detected. Does not exclude the possiblity of exposure to HCV. Blood Venipuncture / Unknown 12/03/2020 12:16 PM CDT 12/03/2020 12:23 PM CDT us Heriberto Knott MD LAB_1 Final Result Performing Organization Address City/[facility] Co de Phone Number [facility] [address] [place] [address] * LAB HIV-1 p24 AND HIV-1/HIV-2 ANTIBODIES (05/31/2017 5:20 PM CDT) Pathologist [facility] HIV-1 p24 Ag and HIV-1/HIV-2 Ab Nonreactive Nonreactive PN SOFT 05/31/2017 5:20 PM CDT 05/31/2017 9:07 PM CDT Narrative PN SOFT - 05/31/2017 9:39 PM CDT Performed at [place] [id number] CLIA number [id number] Carly Del Real APRN, CONTROL CL[employer] LAB_1 Fi nal Result PN SOFT [address] [place] [address] from Last 3 Months or Most Recently Relevant to Health Maintenance Insurance [employer] S[employer]F [employer]NAGED C[employer] Care Teams Director Manufacturing Engineering Relationship Specialty Start Date End Date Lisbeth Sanchez, CROP QUANTITATIVE GENETICIST, CONTROL CLERK [employer] [address] [facility] [place] [address] PCP - General Nurse Practitioner 01/23/23
[2025-07-31 20:44] VITALS: BP 157/106; PULSE 112; RESP 16; TEMP 37.1; O2SAT 100; BMI 38.7
--- NOTE | 2025-07-31 21:25 | ED_ITS ---
HPI - General Adult General Date Seen: 07/31/25 Chief complaint: Chest Pain Stated complaint: Chest pain Time Seen by Provider: 07/31/25 21:11 History of Present Illness HPI narrative: Patient is a 35-year-old generally healthy young woman who presents for evaluat ion of chest pain which she has been noticing on and off for the past week. She says initially a week ago she was having sharp stabbing type pains in her left chest that would shoot into her upper chest these would last 10-15 seconds. Mid week she developed more of a diffuse achy pain across her upper chest which was pretty consistent, a couple days ago that resolved and she thought she was doing pretty well until tonight when she developed recurrent sharp shooting pains. 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 She is on control, had been on an estrogen pill but is being transitioned to progestin only. She has no history of DVT, is not had any lower extremity swelling or pain. No fevers or cough. No shortness of breath. No pain currently. Is not positional nor exertional. She does not smoke or drink, no other substances. Here tonight with her . Related Data Allergies Allergy/AdvReac Type Severity Reaction Status Date / Time benzoyl peroxide Allergy Intermediate Hives Verified 07/31/25 20:50 Review of Systems Status of ROS: Reports: 10 or more systems reviewed and unremarkable except as noted in History and below Exam Narrative: Exam Narrative: Vital signs reviewed In general, an alert, nontoxic young woman. She looks comfortable, breathing easily. Head: Normocephalic, atraumatic. Eyes: Sclera clear. Pupils equal and reactive. ENT: Mucous membranes moist. Neck: Supple without adenopathy. Heart: Regular rate and rhythm without murmur. No apparent rub. Lungs: Clear. No increased work of breathing, crackles or wheezes. Abdomen: Soft, nontender to palpation. Extremities: Well perfused, pulses intact. No significant edema. Neurologic: Alert, conversant. Speech fluent, face symmetric. Moves all extremities equally. Skin: Warm, dry well perfused. Affect: Normal. Const: Vital Signs, click to edit/add: Vital Signs - 24 hr 07/31/25 20:44 Temperature 98.7 F Pulse Rate [Left P ulse Oximeter] 112 H Respiratory Rate 16 Blood Pressure [Ri ght Upper Arm] 157/106 H Pulse Oximetry 100 Oxygen Delivery Me thod Room Air Course Course ED Course: An EKG was done on arrival, by my review this shows a sinus tachycardia, ventricular rate of 102. No acute ST segment changes. No S1 Q 3 T3. Normal indices, unremarkable T-waves. Patient presents with a couple different kinds of chest pain over the past week, intermittent. I do not see any sign of pericarditis on her EKG and pain is not positional. Other diagnostic considerations would be pneumonia, pneumothorax, pleurisy, PE cannot be ruled out based on her tachycardia and oral contraceptive use I will order D-dimer. Labs are reviewed by me and are normal. Chest x-ray also reviewed by me without evidence of pneumothorax, infiltrate, pleural effusion, or other acute finding. Discussed that patients symptoms are likely related to pleurisy, recommend anti- inflammatory trial, primary care follow-up if not improving over the next few days to week, return any time for acute worsening such as high fevers, shortness of breath etcetera Vital Signs Vital signs: Initial Vital Signs Temperature 98.7 F 07/31/25 20:44 Temperature Source Temporal Artery Scan 07/31/25 20:44 Pulse Rate 112 H 07/31/25 20:44 Pulse Rhythm Regular 07/31/25 20:44 Respiratory Rate 16 07/31/25 20:44 Blood Pressure 157/106 H 07/31/25 20:44 Blood Pressure Mean 123 H 07/31/25 20:44 Blood Pressure Position Sitting 07/31/25 20:44 Pulse Oximetry 100 07/31/25 20:44 Oxygen Delivery Method Room Air 07/31/25 20:44 Vital Signs Temperature 98.7 F 07/31/25 20:44 Pulse Rate 112 H 07/31/25 20:44 Respiratory Rate 16 07/31/25 20:44 Blood Pressure 157/106 H 07/31/25 20:44 Pulse Oximetry 100 07/31/25 20:44 Oxygen Delivery Method Room Air 07/31/25 20:44 Temperature 98.7 F 07/31/25 20:44 Pulse Rate 112 H 07/31/25 20:44 Respiratory Rate 16 07/31/25 20:44 Blood Pressure 157/106 H 07/31/25 20:44 Pulse Oximetry 100 07/31/25 20:44 Oxygen Delivery Method Room Air 07/31/25 20:44 Medical Decision Making Lab Data Lab results reviewed: Yes I reviewed the patient's lab results Labs: Lab Results 07/31/25 07/31/25 Range/Units 21:24 21:40 D-Dimer Quant (PE/DVT) 0.48 (0.00-0.50) ug/ml POC Troponin I High Sensi 2.9 (2.9-13.0) pg/mL Imaging Data Chest x-ray: Attestation: I have reviewed the pertinent imaging results. Radiologist's impression: Patient: Emily Cheng MR#: [id number] : 1990 Acct:[id number] Loc: ED Service Date: 07/31/[address]: Ordering Physician: Valentina Coto M.D. Date of Service: 07/31/25 Procedure(s): XR chest 2V Accession Number(s): [id number] cc: Valentina Coto M.D.; Provider,Not a Local~ For Patients: As a result of the Century Cures Act, medical imaging exams and procedure reports are released immediately into your electronic medical record. You may view this report before your referring provider. If you have questions, please contact your health care provider. INDICATION: Chest pain, ongoing for 1 week. TECHNIQUE: Chest 2 view. COMPARISON: None. FINDINGS: Cardiovascular: Heart size and pulmonary vasculature are within normal limits. Lungs and pleural spaces: The lungs are clear. No sign of pleural effusion. No pneumothorax identified. Bones and soft tissues: Mild degenerative changes of the spine. IMPRESSION: No acute cardiopulmonary findings. Dictated by Noemi Paniagua MD @ 07/31/2025 10:22:14 PM Discharge Plan Discharge Clinical Impression: Atypical chest pain Patient Disposition: Home, Self-Care Condition: Stable Instructions: Chest Pain (ED) Additional Instructions: Your test tonight are reassuring. I do not see any evidence of concerning causes for chest pains such as blood clot, pneumonia, collapsed lung or pericarditis. As we discussed, symptoms are most likely related to some inflammation inside the chest. I would recommend a trial of ibuprofen 400 mg 3 times a day for the next few days. If not improving, follow-up with primary care. Return any time if you have severe worsening such as high fevers, significant shortness of breath, etcetera. Follow Up/Referrals: Provider,Not a Local [Primary Care Provider, Family Practice] Stand Alone Forms: [employer] Info Instructions
--- OUTSIDE RECORDS SUMMARY | 2025-07-31 21:56 | XMS_ITS | Clinical Summary ---
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 Medications hydroCHLOROthia zide 25 mg tablet Take 25 mg by mouth once daily. 03/20/2024 Active norethindrone, Contraceptive, (MICRONOR, 28,) 0.35 mg tablet Take 0.35 mg by mouth once daily. Active valACYclovir (VALTREX) 1 gram tablet Take 1 g by mouth. PRN at the onset of symptoms 03/20/2024 Active Oauxwvnk-Pk-Hvk -Fe-FA tab tablet Take 1 Tablet by mouth once daily. Active oxyCODONE (ROXICODONE) 5 mg immediate release tabletIndicatio ns:Post-op pain Take 1 Tablet (5 mg) by mouth every 6 hours if needed for Pain. 15 Tablet 04/03/2024 2:31 PM CDT 04/03/2024 Active ibuprofen (ADVIL; MOTRIN) 600 mg tabletIndicatio ns:Post-op pain Take 1 Tablet (600 mg) by mouth every 6 hours if needed for Pain. Maximum of 3200 mg in 24 hours. 30 Tablet 04/03/2024 2:31 PM CDT 04/03/2024 Active sennosides-docu sate (SENOKOT S) (8.6-50 mg) tabletIndicatio ns:Post-op pain Take 2 Tablets by mouth once daily. 20 Tablet 04/03/2024 2:31 PM CDT 04/03/2024 Active Active Problems Problem Noted Date Diagnosed Date HTN (hypertension) 08/04/2010 Immunizations Immunization Administration Dates Next Due Hepatitis B (Peds) 02/08/1999,08/17/1998, 998 Influenza, IIV3 (Age >=3 years) 07/05/2010,07/18 MMR 09/21/2000,10/02/1989 Oral Polio Vaccine 04/11/1994,10/02/1989, 989,1988 Td (Age >=7 Years) 09/21/2000 Tuberculin (PPD) 12/07/2010,11/30/2010 Family History Medical History Relation Name Comments Good Health Father Hypertension Father Good Health Mother Hypertension Mother Heart Disease Paternal Grandfather heart transplant Relation Name Status Comments Father Mother Paternal Grandfather Social History Tobacco Use Types Packs/Day Years Used Date Smoking Tobacco: Never Passive Smoke Exposure: Never Smokeless Tobacco: Never Alcohol Use Standard Drinks/Week Comments Yes 0 (1 standard drink = 0.6 oz pur e alcohol) occasionally Interpersonal Safety Answer Date Record ed Are you being hit, kicked, p ushed or yelled at (see row info)? 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 Gender Identity Not on file Sexual Orientation Not on file Obstetrics History Para Term AB IAB SAB Ectopic Multiple Livin g Live Births 0 0 0 0 0 0 0 0 0 0 Last Filed Vital Signs Vital Sign Reading Time Taken Comments Blood Pressure 134/84 04/03/2024 3:50 PM CDT Pulse 87 04/03/2024 3:50 PM CDT Temperature 36.1 C (97 F) 04/03/2024 3:20 PM CDT Respiratory Rate 16 04/03/2024 3:50 PM CDT Oxygen Saturation 100% 04/03/2024 3:50 PM CDT Inhaled Oxygen Concentration - - Weight 113.4 kg (250 lb) 04/03/2024 11:26 AM CDT Height 176.5 cm (5' 9.5) 04/03/2024 11:26 AM CD T Body Mass Index 36.39 04/03/2024 11:26 AM CDT Plan of Treatment Health Maintenance Due Date Last Done Comments Depression screening for age 12+ 2000 HIV for age 15-65 2003 BMI (ht and wt on same day) for age 18+ 2006 Hepatitis C screening for ag e 18-79 2006 Tetanus booster 09/21/2010 09/21/2000 Pap test for age 21-65 08/04/2013 0, 07/23/2009, 07/18/2008 HPV series for age 9-45 (1 - 3-dose SCDM series) 2015 Influenza Vaccine (#1) 2025 0, 07/18/2008 RSV vaccine for adults or (1 - 1-dose 75+ series) 2063 Hepatitis B series for 19+ Completed 02/08, 08/17/1998, 07/18/1998 Pneumococcal series for age 6-49 Aged Out No longer eligible b ased on patient's age to complete this topic Procedures Procedure Name Priority Date/Time Associated Diagnosis Comments HOSPICE COORDINATOR THIN PREP PAP SCREEN IMAGED Routine 08/04/2010 10:46 AM CLASSICS PROFESSOR Screening for malignant neoplasm of the cervix from Last 3 Months or Most Recently Relevant to Health Maintenance Results * Pap Screening (08/04/2010 10:46 AM CLASSICS PROFESSOR) CYTOLOGY CYTOPATHOLOGY REPORT [facility] Status: Final Status [id number] CLINICAL INFORMATION Last Date of LMP :07/27/2010 Last Pap Date :07/23/2009 Last Pap Result :NIL ABN [place]/Bx Past 5 YRS :None Hormone Usage :BCP/OCP/Patch/Rin g Menstrual Status :Regular Periods [place]/Bx done today :No Additional Information :None given HPV Request :HPV if ASCUS SPECIMEN SOURCE :Cervical/vaginal ThinPrep Vial, screening SPECIMEN ADEQUACY :Satisfactory for evaluation No endocervical component seen. INTERPRETATION/RES ULT Negative for intraepithelial lesion or malignancy (NIL) Cytology 1st Screener :wst Signed by :wst This specimen was screened by the FDA approved ThinPrep Imaging System and manually reviewed. NOTE: The Pap test is a screening technique, not a diagnostic procedure. It is used primarily to screen for squamous cancers and precursor lesions. Published studies have shown that it is subject to both false negative and false positive results. The pap test should not be used as the sole means to diagnose or exclude pre-malignant and malignant lesions. COLLECTED:08/04/10 ACCESSIONED: 08/05/10 SIGNED: 08/10/10 [facility] [place] CODE NIL [facility] Cervical/Vaginal (Cervical/Vagina l) 08/04/2010 10:46 AM CLASSICS PROFESSOR 08/04/2010 10:41 AM CLASSICS PROFESSOR Purnima Gilliland NP PATHOLOGY/CYTOLOG Y Final Result [facility] INTERNAL ZIP [phone] [address] from Last 3 Months or Most Recently Relevant to Health Maintenance Insurance [employer] [place] [id number] Advance Directives * Full Code (Latest Code Status on File) Date Activated Date Inactivated Comments 04/03/2024 11:21 AM 04/03/2024 6:18 PM Question Answer Comments Code Status Discussion: Not Discussed Care Teams 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 [place] [address] PCP - General Nurse Practitioner - Family 03/08/24
[2025-07-31 22:00] LABS: D Dimer Quantitative* 0.48 ug/ml (0.00-0.50)
== END 2025-07-31 22:38 | disposition home or self-care (01) ==
PROVIDERS: Emergency Provider Emergency Medicine
DX: R07.89 Other chest pain (principal); R00.0 Tachycardia, unspecified; Z79.3 Long term (current) use of hormonal contraceptives
CPT/HCPCS: 36415; 71046; 84484; 85379; 93005; 99284